=== PATIENT | male | born 1990 | race Caucasian/White ===

== ENCOUNTER 2017-04-22 07:00 | Emergency (ER) | payer OTHER ==
[~2017-04-22] VITALS: Ht 177.8 cm; Wt 92.7 kg
[2017-04-22 07:07] VITALS: Ht 177.8 cm; Wt 92.7 kg
[2017-04-22] MEDS ORDERED: AZITTAB PO (07:26)
[2017-04-22 08:00] LABS: INFLUENZA B ANTIGEN Neg for Influ B (NEG)
[2017-04-22] MEDS ORDERED: AMOX875T PO (08:40)
[2017-04-22 09:17] VITALS: BP 144/91; PULSE 120; TEMP 37.6; O2SAT 95
--- NOTE | 2017-04-22 19:28 | EMERGENCY ROOM VISIT NOTE ---
ED Visit Note First contact with patient: 07:07 CHIEF COMPLAINT: Fever, congestion, aches, ear pain, nausea, vomiting, diarrhea , and cough HISTORY OF PRESENT ILLNESS: This 27-year-old white male patient has a multitude of complaints. He had a fever, diffuse body aches, cough, and head congestion for the last few days. He was seen at an urgent care and was diagnosed with an ear infection. He was prescribed Zithromax. He states it is not helping. Last night he developed nausea, vomiting, and diarrhea. No shortness of breath, or chest pain. No dizziness, or lightheadedness. No sore throat. No difficulty with speech or gait, no confusion or incoordination. He does note some soreness in his kidneys today and thinks he may have had some stinging while urinating this morning. Pain is 5/10. No treatment yet. No other complaints. No known ill contacts. His accompanies him today. REVIEW OF SYSTEM: HEENT: No dizziness, visual problems, hearing loss, or tinnitus. There is no difficulty swallowing and no oral lesions are present. LYMPH: No adenopathy. PULMONARY: No shortness of breath, sputum production or hemoptysis. CARDIOVASCULAR: No chest pain, palpitations, shortness of breath or peripheral edema. GASTROINTESTINAL: Positive diarrhea, nausea, vomiting, and abdominal pain. GENITOURINARY: No dysuria, frequency, urgency or nocturia. NEUROLOGIC: No weakness, muscle tenderness, epilepsy or history of neurological problems. MUSCULOSKELETAL: No history of joint tenderness/swelling. No history of arthritis or arthralgias. SKIN: No rashes or lesions. ENDOCRINE: No history of diabetes, thyroid disorders, or abnormal hair growth. PMH: Supplemental sheet was reviewed and signed. Previous surgeries: None Medical history: Benign Current medications: None Allergies: NKDA Family history: Noncontributory SOCIAL HISTORY: Patient lives with his . No tobacco use, occasional EtOH use. PHYSICAL EXAM: Vital Signs: Temp 37.6 pulse 109 BP 155/87 respirations 20. Gen : Well-developed, well-nourished, young white male, in no acute distress. He is sitting on the bed. Alert and oriented. Skin: Warm and dry with good turgor. No rashes or lesions. No ecchymosis or erythema. The patient is mildly diaphoretic. No abrasions. HEAD: Atraumatic, without temporal or scalp tenderness. EYES: PERRL, EOMI, no discharge or injection. Ears: TMs are bulging bilaterally with cloudy white fluid. TMs are injected. Canals are patent. Nares: Clear nasal drainage is present. No epistaxis. THROAT: Pharynx without injection, exudate or tonsillar hypertrophy. Airway patent. Postnasal drip is noted. Lymphatics: Anterior and posterior chains are palpated without enlargement or tenderness. HEART: Regular rate and rhythm without murmurs, ectopy, gallops, or rubs. Peripheral pulses are 2+. LUNGS: Clear to auscultation and breath sounds equal, no wheezes, rales, or rhonchi. Good air movement. Patient is able to take a deep breath. ABDOMEN: Was inspected, auscultated, and palpated. Soft, nontender, no hepatosplenomegaly, or masses. No rebound. No CVA tenderness. Neurologic: Gross sensation is intact across the upper and lower extremities by soft touch. Musculoskeletal: Patient has no discomfort with palpation over the cervical spine. Full range of motion of the neck. EMERGENCY DEPARTMENT COURSE: Influenza swab obtained today was negative. UA obtained today was unremarkable. DIAGNOSIS: Bilateral ear otitis media. Common cold DISCHARGE INSTRUCTIONS: Patient was educated regarding today's findings. Conservative care measures were discussed. He will stop the Zithromax. Prescription was provided for Augmentin 875 mg twice a day 10 days. Maintain hydration. Rest as able. Ibuprofen, 600 mg every 6 hours for fever or pain. Add Tylenol every 6 hours for breakthrough discomfort or fever. Delsym syrup 2 teaspoons b.i.d. as needed for cough. Add Mucinex D daily for decongestion. See your doctor in a few days if the symptoms persist. He may also return to the ED if persisting vomiting develops, or if he is unable to keep the fever below 102 at home. He may use Imodium as needed for any further diarrhea. I did suggest that he take a day or 2 off of work. Current/Historical Medications Scheduled Amoxicillin & Pot Clavulanate (Augmentin 875-125 mg), 1 TAB PO BID Azithromycin (Zithromax Z-Janak), 1 PKT PO UD Allergies Coded Allergies: No Known Allergies (Unverified , 04/22/17) Vital Signs Date Time Temp Pulse Resp B/P (MAP) Pulse Ox O2 Delivery O2 Flow Rate FiO2 04/22/17 09:17 37.6 120 20 144/91 95 04/22/17 09:10 120 144/91 95 Room Air 04/22/17 07:07 37.6 109 20 155/87 95 Room Air Laboratory Results Test 04/22/17 07:30 04/22/17 07:45 Influenza Type A Antigen Neg for Influ A (NEG) Influenza Type B Antigen Neg for Influ B (NEG) Urine Color DK YELLOW Urine Appearance CLEAR (CLEAR) Urine pH 5.5 (4.5-7.5) Urine Specific [place] 1.030 (1.000-1.030) Urine Protein TRACE (NEG) Urine Glucose (UA) NEG (NEG) Urine Ketones TRACE (NEG) Urine Occult Blood NEG (NEG) Urine Nitrite NEG (NEG) Urine Bilirubin NEG (NEG) Urine Urobilinogen NEG (NEG) Urine Leukocyte Esterase NEG (NEG) Urine WBC (Auto) 1-5 /hpf (0-5) Urine RBC (Auto) 0-4 /hpf (0-4) Urine Hyaline Casts (Auto) 1-5 /lpf (0-5) Urine Epithelial Cells (Auto) 10-20 /lpf (0-5) Urine Bacteria (Auto) NEG (NEG) Departure Information Impression Primary Impression: Mild dehydration Additional Impression: Bilateral infective otitis media Dispostion Home / Self-Care Condition GOOD Prescriptions Amoxicillin & Pot Clavulanate (Augmentin 875-125 mg) 1 Tab Tab 1 TAB PO BID, #20 TAB Prov: Ariel Dillard,P.A. 04/22/17 Forms INCREASE FLUID INTAKE, HOME CARE DOCUMENTATION FORM, MOTRIN USE, TYLENOL USE, IMPORTANT VISIT INFORMATION Patient Instructions My [facility], ED Otitis Media Serous Adult Additional Instructions Stop the Zithromax Start the Augmentin twice a day 10 days Maintain hydration-push a lot of fluids Tylenol 1000 mg and Motrin 600 mg every 6 hours for fever and body ache control Start Mucinex D daily for congestion Use a probiotic or yogurt product daily Imodium can be used for control of loose stools rest as able Return to the ED for any acute changes or follow-up with your PCP Problem Qualifiers
== END 2017-04-22 09:28 | disposition home or self-care (01) ==
LOC: C.EDB 07:01
DX: H66.93 Otitis media, unspecified, bilateral (principal); E86.0 Dehydration; R11.2 Nausea with vomiting, unspecified; R19.7 Diarrhea, unspecified